=== PATIENT | male | born 1960 | race Caucasian/White ===

== ENCOUNTER 2019-12-26 17:19 | Inpatient (IN) | payer MEDICAID ==
[~2019-12-26] VITALS: Ht 175.3 cm; Wt 98.0 kg
--- NOTE | 2019-12-26 17:32 | NUR ---
PT AAOX4. [facility]o chest pain. Upon assessment pt c/o mid chest pain radiating to left arm. 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 Pt placed on monitor and pulse ox. Labs drawn, IV initiated. VSS. Awaiting MD for Eval.
[2019-12-26 17:49] LABS: BASOPHILS # (AUTO) 0.1 /CMM (0.0-0.2); BASOPHILS % (AUTO) 0.9 % (0.0-2.0); EOSINOPHILS % (AUTO) 0.2 % (0.0-6.0); HEMATOCRIT 43 % (39-51); HEMOGLOBIN 14.4 g/dL (13.5-17.5); LYMPHOCYTES % (AUTO) 20.2 % (20.0-44.0); MEAN CORPUSCULAR HGB CONC 33 g/dl (31.0-36.0); MEAN CORPUSCULAR VOLUME 90 fL (80-96); MONOCYTES # (AUTO) 0.9 /CMM (0.1-1.30); MONOCYTES % (AUTO) 8.5 % (2.0-12.0); NEUTROPHILS % (AUTO) 70.2 % (43.0-81.0); PLATELET COUNT (AUTO) 156 /CMM (150-450)
[2019-12-26] MEDS ORDERED: ASPIRIN 325 MG TABLET PO ONE (18:00)
[2019-12-26] MEDS ORDERED: NITROGLYCERIN PACKET 1 GM PACKET TD ONE (18:00)
[2019-12-26] MEDS ORDERED: ASPIRIN 325 MG TABLET ONE (18:12)
[2019-12-26] MEDS ORDERED: NITROGLYCERIN PACKET 1 GM PACKET ONE (18:12)
[2019-12-26 18:14] LABS: ALANINE AMINOTRANSFERASE 39 U/L (12-78); ALBUMIN 3.4 g/dL (3.4-5.0); ALKALINE PHOSPHATASE 98 U/L (46-116); ASPARTATE AMINOTRANSFERASE 21 U/L (15-37); BILIRUBIN,DIRECT 0.1 mg/dL (0.0-0.2); BILIRUBIN,TOTAL 0.7 mg/dL (0.2-1.0); CALCIUM, SERUM 8.9 mg/dL (8.5-10.1); CARBON DIOXIDE 26 mmol/L (21-32); CHLORIDE 96 mmol/L (98-107); GLUCOSE 226 mg/dL (74-106); POTASSIUM 4.2 mmol/L (3.5-5.1); SODIUM SERUM 134 mmol/L (136-145); TOTAL PROTEIN, SERUM 6.9 g/dL (6.4-8.2); UREA NITROGEN, BLOOD 26 mg/dL (7-18)
[2019-12-26] MEDS ORDERED: METF-440 PO (18:30)
[2019-12-26] MEDS ORDERED: ASPI-1169 PO (18:30)
[2019-12-26] MEDS ORDERED: ATOR40TA PO (18:30)
[2019-12-26] MEDS ORDERED: TIOT18CA3 IH (18:30)
[2019-12-26] MEDS ORDERED: FURO-144 PO (18:30)
[2019-12-26] MEDS ORDERED: PRED50TA PO (18:30)
[2019-12-26] MEDS ORDERED: LISI2.5T2 PO (18:30)
[2019-12-26] MEDS ORDERED: CARV6.25 PO (18:30)
--- NOTE | 2019-12-26 19:00 | NUR ---
Patient is resting comfortably in bed. Easily aroused. VSS
--- NOTE | 2019-12-26 19:17 | NUR ---
PAGED [facility].
--- NOTE | 2019-12-26 19:28 | NUR ---
Patient is resting comfortably in bed . Easily aroused. VSS.
[2019-12-26] MEDS ORDERED: MORPHINE SULFATE INJ 2 MG/ML DISP.SYRIN IV PRN (20:00)
[2019-12-26] MEDS ORDERED: MAG HYDROX/AL HYDROX/SIMETH 30 ML UDC PO PRN (20:00)
[2019-12-26] MEDS ORDERED: ACETAMINOPHEN 325 MG TABLET PO PRN (20:00)
[2019-12-26] MEDS ORDERED: ONDANSETRON HCL/PF 4 MG/2 ML VIAL IVP PRN (20:00)
[2019-12-26] MEDS ORDERED: MAGNESIUM HYDROXIDE 30 ML UDC PO PRN (20:00)
[2019-12-26] MEDS ORDERED: HYDROCODONE/APAP 5/325MG 1 EACH TABLET PO PRN (20:00)
--- NOTE | 2019-12-26 20:28 | NUR ---
REPORT GIVEN TO IVORY SEALS FOR SAUD
[2019-12-26] MEDS ORDERED: INSULIN REGULAR, HUMAN 100 UNIT/ML 3 ML VIAL SQ PRN (20:30)
[2019-12-26] MEDS ORDERED: DEXTROSE 50%-WATER 50 ML DISP.SYRIN IV PRN (20:30)
[2019-12-26 20:45] VITALS: BP 121/67
--- NOTE | 2019-12-26 20:55 | NUR ---
PT TRASNFERED PER ACLS PROTOCOL
--- NOTE | 2019-12-26 21:00 | NUR ---
GAS FLOW REGULATOR NOTE: RECEIVED PATIENT TO ER, NO ACUTE DISTRESS NOTED. BREATHING EVEN AND UNLABORED, NO SOB NOTED. IV TO LAC IN PLACE. PATIENT STILL COMPLAINS OF CHEST PAIN 3/10, NO LONGER RADIATING TO ARM. TELE READING SINUS TACH 108. ORIENTED PATIENT TO ROOM AND USE OF CALL LIGHT. BED LOCKED AND IN LOWEST POSITION, CALL LIGHT IN REACH. WILL CONTINUE TO MONITOR.
[2019-12-26] MEDS: BLOOD SUGAR DIAGNOSTIC 1 EACH STRIP IN SCH (21:15)
[2019-12-26] MEDS: IPRATROPIUM NEB FS 0.5 MG/2.5 ML AMPUL.NEB NEB SCH (21:42)
--- NOTE | 2019-12-26 22:00 | NUR ---
BLIND TEACHER NOTE: PATIENT BLOOD SUGAR LEVEL 186M/DL, PATIENT TO RECEIVE 3 UNITS OF INSULIN PER SLIDING SCALE. NO S/S OF HYPER/HYPOGLYCEMIA NOTED. WILL CONTINUE TO MONITOR.
[2019-12-27] VITALS: BP 124/58
[2019-12-27] MEDS: IPRATROPIUM NEB FS 0.5 MG/2.5 ML AMPUL.NEB NEB SCH ×3 (00:41→13:30)
[2019-12-27 04:00] VITALS: BP 121/74
[2019-12-27 06:21] LABS: BASOPHILS % (AUTO) 0.4 % (0.0-2.0); EOSINOPHILS % (AUTO) 0.6 % (0.0-6.0); HEMATOCRIT 39 % (39-51); HEMOGLOBIN 13.2 g/dL (13.5-17.5); LYMPHOCYTES # (AUTO) 1.7 /CMM (0.8-4.8); LYMPHOCYTES % (AUTO) 25.5 % (20.0-44.0); MEAN CORPUSCULAR HGB CONC 34 g/dl (31.0-36.0); MEAN CORPUSCULAR VOLUME 90 fL (80-96); MONOCYTES # (AUTO) 0.6 /CMM (0.1-1.30); MONOCYTES % (AUTO) 9.6 % (2.0-12.0); NEUTROPHILS # (AUTO) 4.1 /CMM (1.8-8.9); NEUTROPHILS % (AUTO) 63.9 % (43.0-81.0); PLATELET COUNT (AUTO) 129 /CMM (150-450); RED BLOOD CELL COUNT(AUTO) 4.39 MIL/uL (4.5-6.0); WHITE BLOOD COUNT (AUTO) 6.5 K/uL (4.3-11.0)
--- NOTE | 2019-12-27 06:55 | NUR ---
OUTLET MANAGER NOTE: PATIENT RESTING IN BED, NO ACUTE DISTRESS NOTED. BREATHING EVEN AND UNLABORED, NO SOB NOTED. IV TO LAC IN PLACE. TELE READING SR 84 WITH PVC. PATIENT BLOOD SUGAR LEVEL 256MG/DL, TO RECEIVE6 UNITS OF INSULIN PER SLIDING SCALE. BED LOCKED AND IN LOWEST POSITION, CALL LIGHT IN REACH. WILL ENDORSE TO DAY NURSE TO CONTINUE WITH PLAN OF CARE.
[2019-12-27] MEDS: BLOOD SUGAR DIAGNOSTIC 1 EACH STRIP IN SCH ×2 (07:04→11:34)
[2019-12-27 07:27] LABS: CALCIUM, SERUM 8.2 mg/dL (8.5-10.1); CREATININE 0.9 mg/dL (0.6-1.3); POTASSIUM 4.1 mmol/L (3.5-5.1)
--- NOTE | 2019-12-27 07:30 | NUR ---
Tele/RN - Assessment Patient in bed awake, A/O x 4, denies chest pain, stable on room air, tele shows SR with PVCs. Saline lock on the LAC is patent, intact, with no signs of infiltration. Labs reviewed no critical results seen. Urine specimen sent for drug screen. Discussed plan of care with patient and in agreement. Will continue with current medical management.
[2019-12-27 07:34] LABS: ALBUMIN 2.9 g/dL (3.4-5.0); BILIRUBIN,TOTAL 0.8 mg/dL (0.2-1.0); PHOSPHORUS 3.4 mg/dL (2.5-4.9); TOTAL PROTEIN, SERUM 6.4 g/dL (6.4-8.2)
[2019-12-27 07:54] LABS: THYROID STIMULATING HORMONE 1.992 uIU/mL (0.358-3.74)
[2019-12-27 08:00] VITALS: BP 108/59
--- NOTE | 2019-12-27 08:30 | NUR ---
Tele/RN - Cardio consult Seen and examined by Dr. Schmitt with order to d/c tele, obtain consent for CTCA. Patient signed consent for CTCA.
[2019-12-27] MEDS ORDERED: NICOTINE PATCH (14MG) 14 MG PATCH.TD24 TD SCH (09:00)
[2019-12-27] MEDS ORDERED: FUROSEMIDE 40 MG TABLET PO SCH (09:00)
[2019-12-27] MEDS ORDERED: ASPIRIN 81 MG TAB.CHEW PO SCH (09:00)
[2019-12-27] MEDS ORDERED: CARVEDILOL 6.25 MG TABLET PO SCH ×2 (09:00)
[2019-12-27] MEDS ORDERED: LISINOPRIL (5MG) 5 MG TABLET PO SCH (09:00)
--- NOTE | 2019-12-27 09:00 | NUR ---
MS/RN - Notes Patient signed consent for smoking, explained the risk and consequences, smoking cessation handout provided.
[2019-12-27 11:07] LABS: APPEARANCE,URINE CLEAR (CLEAR); BILIRUBIN,URINE NEGATIVE (NEGATIVE); BLOOD, URINE SMALL Ery/uL (NEGATIVE); COLOR,URINE YELLOW (YELLOW); KETONES,URINE NEGATIVE (NEGATIVE); LEUKOCYTE ESTERASE ,URINE NEGATIVE (NEGATIVE); NITRITE, URINE NEGATIVE (NEGATIVE); PH,URINE 6.5 (5.0-8.0); PROTEIN,URINE NEGATIVE (NEGATIVE); UGLUCOSE >=1000 mg/dL (NEGATIVE)
[2019-12-27] MEDS ORDERED: IOHEXOL-350 100 ML VIAL IV ONE (11:09)
[2019-12-27] MEDS ORDERED: IV NS 0.9% 250 ML IV ONE (11:09)
[2019-12-27] MEDS ORDERED: NITROGLYCERIN 0.4 MG/TAB BOTTLE ONE (11:14)
[2019-12-27] MEDS ORDERED: METOPROLOL TARTRATE INJ 5 MG/5 ML AMPUL ONE ×2 (11:15→11:48)
[2019-12-27 11:17] LABS: BACTERIA,URINE Rare /HPF (None Seen); MUCUS,URINE Rare /LPF (None Seen); SQUAMOUS EPITHELIAL CELL,UR Rare /HPF (None Seen); WBC,URINE 0-2 /HPF (0-3)
--- NOTE | 2019-12-27 11:29 | NUR ---
Social service consult requested by for homelessness. Per MD notes, pt is a 59-year-old male with past medical history of essential hypertension, hyperlipidemia, diabetes mellitus, COPD, presented to the emergency department via rescue ambulance from [place] for evaluation of epigastric and nonradiating chest pain that started approximately 4 hours prior to arrival. WIRE DROPPER met with the pt bedside. Pt is alert and oriented x 4. Pt appears disheveled and unkempt. Pt reports to be homeless and states, he has been staying at [facility] for the past 2 weeks and plans to go back there. Pt requested for WIRE DROPPER to contact his bonding machine tender Deepak and inform him that he is hospitalized. WIRE DROPPER contacted Deepak and left him a voicemail message regarding pt's whereabouts. Pt denies drug and alcohol use. Pt is a cigarette smoker and goes out to smoke several times during this hospitalization. Pt states he suffers from Depression but is not taking any medications for it. Pt denies suicidal and homicidal ideations and visual/auditory hallucinations at this time. Pt stated, he needs a walker. WIRE DROPPER informed BESSY Catalan who will get a walker for the pt. WIRE DROPPER provided pt with active listening and supportive counseling. Pt will require a TAP card upon discharge. WIRE DROPPER updated pt's BOZENA Jay with pt's discharge plan.
[2019-12-27] MEDS: METOPROLOL TARTRATE INJ 5 MG/5 ML AMPUL IVP PRN ×6 (11:30→11:55)
[2019-12-27] MEDS ORDERED: NITROGLYCERIN 0.4 MG/TAB BOTTLE SL ONE (11:30)
[2019-12-27 11:55] VITALS: BP 103/56
--- NOTE | 2019-12-27 12:28 | NUR ---
Patient came in with Nitro patch. Nitroglycerin SL discontinued.
--- NOTE | 2019-12-27 14:44 | NUR ---
MS/RN - Discharge Patient is alert and oriented x 4, discharged to long-term in stable condition, remain afebrile, denies chest pain, not in any form of distress, ambulatory with steady gait, denies SI/HI at this time. Reviewed discharge instructions with patient and he verbalized full understanding of all teachings including medications and follow up with PCP in one week. Seek immediate medical attention for worsening symptoms, chest pain, shortness of breath, palpitations, abdominal pain or distention, intractable nausea and vomiting, diarrhea, hematochezia, melena, weakness, loss of consciousness, neurological deficit, or any other emergent concerns. All belongings with patient and he deny any missing items. Patient refused photos to be taken of skin, no breakdown. Saline lock removed on the RAC with catheter tip intact, no redness, no swelling noted at the site. Patient signed discharge paperwork and homeless waiver form and copies were given per protocol. Accompanied to the lobby and TAP card was provided to the patient.
[2019-12-27] MEDS ORDERED: ATORVASTATIN 40 MG TABLET PO SCH (18:00)
== END 2019-12-27 15:30 | disposition home or self-care (01) | DRG 198 ==
LOC: ER 17:20 → TELE 20:15 → MED 12-27 09:02
PROVIDERS: ADMIT Nurse Practitioner Acute Care; ATTEND Internal Medicine
DX: I25.10 Atherosclerotic heart disease of native coronary artery without angina pectoris (principal); N17.0 Acute kidney failure with tubular necrosis; E11.65 Type 2 diabetes mellitus with hyperglycemia; E87.1 Hypo-osmolality and hyponatremia; E86.0 Dehydration; Z88.4 Allergy status to anesthetic agent; Z79.82 Long term (current) use of aspirin; Z79.84 Long term (current) use of oral hypoglycemic drugs; Z79.899 Other long term (current) drug therapy; J44.9 Chronic obstructive pulmonary disease, unspecified; Z59.0 Homelessness; I10 Essential (primary) hypertension; E78.5 Hyperlipidemia, unspecified; E66.9 Obesity, unspecified; Z68.31 Body mass index [BMI] 31.0-31.9, adult
CPT/HCPCS: 36415; 71045-TC; 75574; 80048-TC; 80053-TC; 80061-TC; 80076-TC; 80305; 81000-TC; 82962-TC; 83735-TC; 84100-TC; 84443-TC; 84484-TC; 85025-TC; 87081-TC; G0378; J1815; J3490; J7050; Q9967

== ENCOUNTER 2022-04-21 18:48 | Inpatient (IN) | payer MEDICAID ==
[~2022-04-21 18:48] MED LIST: ASPI-1169 PO; ATOR40TA PO; CARV6.25 PO; FURO-144 PO; LISI2.5T2 PO; METF-440 PO; PRED50TA PO; TIOT18CA3 IH
--- NOTE | 2022-04-21 22:16 | NUR ---
PATIENT ARRIVED PER AMBULANCE DIRECT ADMIT FROM [place], PATIENT IS AWAKE, A/O X4, CALM. PER AMBULANCE PERSONNEL PATIENT WAS AGITATED AND RESTLESS AND UNCOOPERATIVE, AND COMBATIVE WHILE INSIDE THE AMBULANCE ON THE WAY HERE. WHEN PATIENT ARRIVED HE STATES THAT HE WANTS TO LEAVE THE HOSPITAL, CHARGE NURSE THOMAS TALKED TO THE PATIENT.
[2022-04-21 22:20] VITALS: BP 119/74
--- NOTE | 2022-04-21 22:30 | NUR ---
PATIENT HAS FOOD ON HIS TABLE, PER EDINSON ERICKSON, CHARGE NURSE GAVE THE FOOD TO THE PATIENT. ADVISED PATIENT DO NOT EAT YET UNTIL MD MADE ADMISSION ORDERS, BUT PATIENT WAS MAD AND REFUSED AND STATES" NO! I AM GOING TO EAT RIGHT NOW!".
--- NOTE | 2022-04-21 23:00 | NUR ---
PATIENT IS VERY ANGRY WITH VERY LOUD TONE OF VOICE AND STATES THAT HE WANTS TO LEAVE, CHARGE NURSE THOMAS MADE AWARE, AND TALKED TO THE PATIENT.
--- NOTE | 2022-04-21 23:21 | NUR ---
INFORMED DR YEPEZ RE: ADMISSION ORDERS.
[2022-04-22] MEDS ORDERED: HYDROCODONE/APAP 5/325MG TABLET PO PRN
[2022-04-22] MEDS ORDERED: MAGNESIUM HYDROXIDE 30 ML UDC PO PRN
[2022-04-22] MEDS ORDERED: MORPHINE SULFATE INJ 2 MG/ML DISP.SYRIN IV PRN
[2022-04-22] MEDS ORDERED: Z GUARD REMEDY 4 OZ OINT TP PRN
[2022-04-22] MEDS ORDERED: ONDANSETRON HCL/PF 4 MG/2 ML VIAL IVP PRN
[2022-04-22] MEDS ORDERED: ZOLPIDEM TARTRATE 5 MG TABLET PO PRN
[2022-04-22] MEDS ORDERED: ACETAMINOPHEN 325 MG TABLET PO PRN
[2022-04-22] MEDS ORDERED: MAG HYDROX/AL HYDROX/SIMETH 30 ML UDC PO PRN
--- NOTE | 2022-04-22 00:19 | NUR ---
DR YEPEZ CAME AND SEEN THE PATIENT.
[2022-04-22] MEDS ORDERED: *INSULIN REGULAR(HUMULIN R)HUM 100 UNIT/ML VIAL SQ PRN (00:30)
[2022-04-22] MEDS ORDERED: INSULIN REGULAR, HUMAN 100 UNIT/ML 3 ML VIAL SQ PRN (00:30)
[2022-04-22] MEDS ORDERED: ENOXAPARIN SODIUM 40 MG/0.4 ML DISP.SYRIN SQ SCH (00:30)
[2022-04-22] MEDS ORDERED: DEXTROSE 50%-WATER 50 ML DISP.SYRIN IV PRN (00:30)
--- NOTE | 2022-04-22 01:20 | NUR ---
PATIENT YELLED, SAYING F WORDS, VERY AGGRESSIVE, BIZZAR BEHAVIOR. VERY RUDE. THREW AWAY ALL THE THINGS FROM THE TABLE TO THE FLOOR. PATIENT REFUSED TO WEAR THE HOSPITAL SOCKS. PATIENT SCREAMS VERY LOUD AND AFTER FEW MINUTES HE CRIES. INFORMED CHARGE NURSE THOMAS. PATIENT REFUSED THE SKIN ASSESSMENTS. UNABLE TO DO THE ADMISSION QUESTIONS DUE TO PATIENT IS VERY IRRITABLE AND PATIENT REFUSED.
[2022-04-22] MEDS: IPRATROPIUM NEB FS 0.5 MG/2.5 ML AMPUL.NEB NEB SCH ×2 (01:30→07:35)
--- NOTE | 2022-04-22 01:45 | NUR ---
Pt refusing schedule EKG and HHN breathing TX at this time. RN aware. No distress noted at this time.
--- NOTE | 2022-04-22 02:00 | NUR ---
PATIENT IS SLEEPING AT THIS TIME.
[2022-04-22 05:55] LABS: BASOPHILS % (AUTO) 0.4 % (0.0-2.0); EOSINOPHILS % (AUTO) 1.3 % (0.0-6.0); HEMATOCRIT 46 % (39-51); HEMOGLOBIN 15.9 g/dL (13.5-17.5); LYMPHOCYTES # (AUTO) 1.9 K/uL (0.8-4.8); LYMPHOCYTES % (AUTO) 29.4 % (20.0-44.0); MEAN CORPUSCULAR HGB CONC 35 g/dl (31.0-36.0); MEAN CORPUSCULAR VOLUME 92 fL (80-96); MONOCYTES # (AUTO) 0.8 K/uL (0.1-1.30); MONOCYTES % (AUTO) 12.9 % (2.0-12.0); NEUTROPHILS # (AUTO) 3.7 K/uL (1.8-8.9); PLATELET COUNT (AUTO) 166 K/uL (150-450); RED BLOOD CELL COUNT(AUTO) 4.99 MIL/uL (4.5-6.0); WHITE BLOOD COUNT (AUTO) 6.6 K/uL (4.3-11.0)
--- NOTE | 2022-04-22 06:00 | NUR ---
PATIENT AWAKE. STATES AGAIN THAT HE WANTS TO LEAVE, INFORMED THE CHARGE NURSE THOMAS 3X.
[2022-04-22 06:37] LABS: CALCIUM, SERUM 8.5 mg/dL (8.5-10.1); CREATININE 0.9 mg/dL (0.6-1.3); PHOSPHORUS 3.1 mg/dL (2.5-4.9); POTASSIUM 3.7 mmol/L (3.5-5.1)
[2022-04-22 07:06] LABS: THYROID STIMULATING HORMONE 1.236 uIU/mL (0.358-3.74)
[2022-04-22] MEDS ORDERED: BLOOD SUGAR DIAGNOSTIC 1 EACH STRIP VI SCH (07:30)
--- NOTE | 2022-04-22 07:51 | NUR ---
ACCORDING TO THE SCRAPPER, AT 0620 PATIENT LEFT. ACCORDING TO THE DISTRICT MANAGER POSTAL SERVICE [place], PATIENT PULLED HIS IV OUT AND LEFT, DISTRICT MANAGER POSTAL SERVICE STATED THAT PATIENT STOPPED AT THE NURSING STATION FOR ABOUT 1-2 MINUTES BEFORE HE LEFT AND CHARGE NURSE SEEN THE PATIENT.
--- NOTE | 2022-04-22 08:39 | NUR ---
RT NOTE Pt. was not available could not find in room.
[2022-04-22] MEDS ORDERED: CARVEDILOL 6.25 MG TABLET PO SCH (09:00)
[2022-04-22] MEDS ORDERED: TIOTROPIUM BROMIDE 6 CAP/BOX CAP.W.DEV IH SCH (09:00)
[2022-04-22] MEDS ORDERED: ASPIRIN 81 MG TAB.CHEW PO SCH (09:00)
[2022-04-22] MEDS ORDERED: FUROSEMIDE 40 MG TABLET PO SCH (09:00)
[2022-04-22] MEDS ORDERED: predniSONE 20 MG TABLET PO SCH (09:00)
[2022-04-22] MEDS ORDERED: PANTOPRAZOLE 40 MG VIAL IV SCH (09:00)
[2022-04-22] MEDS ORDERED: NICOTINE PATCH (21MG) 21 MG PATCH.TD24 TD SCH (09:00)
[2022-04-22] MEDS ORDERED: LISINOPRIL (5MG) 5 MG TABLET PO SCH (09:00)
[2022-04-22] MEDS ORDERED: ATORVASTATIN 40 MG TABLET PO SCH (18:00)
== END 2022-04-22 06:20 | disposition left against medical advice (07) | DRG 190 ==
LOC: TELE 22:12
PROVIDERS: ADMIT Student in an Organized Health Care Education/Training Program; ATTEND Student in an Organized Health Care Education/Training Program
DX: I21.4 Non-ST elevation (NSTEMI) myocardial infarction (principal); I74.5 Embolism and thrombosis of iliac artery; E87.1 Hypo-osmolality and hyponatremia; K90.9 Intestinal malabsorption, unspecified; E11.9 Type 2 diabetes mellitus without complications; E86.0 Dehydration; I71.4 Abdominal aortic aneurysm, without rupture; I25.10 Atherosclerotic heart disease of native coronary artery without angina pectoris; E78.5 Hyperlipidemia, unspecified; I10 Essential (primary) hypertension; I25.2 Old myocardial infarction; F17.210 Nicotine dependence, cigarettes, uncomplicated; F12.90 Cannabis use, unspecified, uncomplicated; Z59.00 Homelessness unspecified; Z20.822 Contact with and (suspected) exposure to COVID-19; Z79.51 Long term (current) use of inhaled steroids; Z79.82 Long term (current) use of aspirin; Z79.84 Long term (current) use of oral hypoglycemic drugs; Z79.899 Other long term (current) drug therapy; Z88.4 Allergy status to anesthetic agent; R11.15 Cyclical vomiting syndrome unrelated to migraine; E87.6 Hypokalemia; R74.01 Elevation of levels of liver transaminase levels; R79.89 Other specified abnormal findings of blood chemistry
CPT/HCPCS: 36415; 80048-TC; 83735-TC; 84100-TC; 84443-TC; 84484-TC; 85025-TC; G0378; J1815; J2405

== ENCOUNTER 2022-09-22 13:11 | Emergency (ER) | payer MEDICAID ==
[~2022-09-22] VITALS: Ht 175.3 cm; Wt 95.3 kg
--- NOTE | 2022-09-22 13:18 | NUR ---
[address] C/O NAUSEA AND VOMITING X 2 HOURS. PLACED ON BED, AAOX4, BREATHING EVEN AND UNLABORED.
--- NOTE | 2022-09-22 14:45 | NUR ---
GROUP BILLING COORDINATOR AT BEDSIDE
--- NOTE | 2022-09-22 14:51 | NUR ---
URINE SAMPLE SENT TO LAB
[2022-09-22 15:13] LABS: BASOPHILS % (AUTO) 0.4 % (0.0-2.0); EOSINOPHILS % (AUTO) 0.1 % (0.0-6.0); HEMATOCRIT 45 % (39-51); HEMOGLOBIN 15.1 g/dL (13.5-17.5); LYMPHOCYTES # (AUTO) 0.9 K/uL (0.8-4.8); MEAN CORPUSCULAR HGB CONC 34 g/dl (31.0-36.0); MEAN CORPUSCULAR VOLUME 94 fL (80-96); MONOCYTES # (AUTO) 0.4 K/uL (0.1-1.30); MONOCYTES % (AUTO) 4.3 % (2.0-12.0); NEUTROPHILS # (AUTO) 7.7 K/uL (1.8-8.9); NEUTROPHILS % (AUTO) 85.2 % (43.0-81.0); PLATELET COUNT (AUTO) 196 K/uL (150-450); RED BLOOD CELL COUNT(AUTO) 4.73 MIL/uL (4.5-6.0); WHITE BLOOD COUNT (AUTO) 9.1 K/uL (4.3-11.0)
[2022-09-22] MEDS ORDERED: IV NS 0.9% 1,000 ML BAG IV ONE (15:30)
[2022-09-22] MEDS ORDERED: ONDANSETRON HCL/PF 4 MG/2 ML VIAL ONE (15:30)
[2022-09-22] MEDS ORDERED: ONDANSETRON HCL/PF 4 MG/2 ML VIAL IVP ONE (15:30)
[2022-09-22 15:32] LABS: ALBUMIN 3.9 g/dL (3.4-5.0); BILIRUBIN,DIRECT 0.1 mg/dL (0.0-0.2); BILIRUBIN,TOTAL 0.4 mg/dL (0.2-1.0); CALCIUM, SERUM 9.2 mg/dL (8.5-10.1); CREATININE 0.9 mg/dL (0.6-1.3); POTASSIUM 4.1 mmol/L (3.5-5.1); TOTAL PROTEIN, SERUM 7.9 g/dL (6.4-8.2)
[2022-09-22 15:38] LABS: BILIRUBIN,URINE NEGATIVE (NEGATIVE); COLOR,URINE YELLOW (YELLOW); LEUKOCYTE ESTERASE ,URINE NEGATIVE (NEGATIVE); NITRITE, URINE NEGATIVE (NEGATIVE); PH,URINE 7.5 (5.0-8.0); PROTEIN,URINE TRACE mg/dl (NEGATIVE); UGLUCOSE 3+ mg/dL (NEGATIVE); UROBILINOGEN,URINE 0.2 EU/dL (0.2)
[2022-09-22 15:50] LABS: BACTERIA,URINE None seen /HPF (None Seen); RBC,URINE 21-50 /HPF (0-2); SQUAMOUS EPITHELIAL CELL,UR 0-2 /HPF (None Seen); WBC,URINE 0-2 /HPF (0-3)
[2022-09-22] MEDS ORDERED: ONDA4TAB5 PO (17:19)
--- NOTE | 2022-09-22 17:55 | NUR ---
IV removed. Catheter intact and site benign. Pressure and 4x4 applied to site. No bleeding noted.Patient discharged to home in stable condition. Written and verbal after care instructions given. Patient verbalizes understanding of instruction.
[2022-09-22 18:00] VITALS: BP 145/75
== END 2022-09-22 17:55 | disposition home or self-care (01) ==
LOC: ER 13:14
DX: R11.2 Nausea with vomiting, unspecified (principal); E11.9 Type 2 diabetes mellitus without complications; I10 Essential (primary) hypertension; Z88.8 Allergy status to other drugs, medicaments and biological substances; Z79.899 Other long term (current) drug therapy
CPT/HCPCS: 99284; 74176; 96374; 96361; 85025; 80048; 83690; 80076; 81001; 36415; J2405; J7030

== ENCOUNTER 2024-08-22 21:16 | Emergency (ER) | payer MEDICARE, OTHER ==
[~2024-08-22] VITALS: Ht 170.2 cm; Wt 72.6 kg
[~2024-08-22 21:16] MED LIST changes: +ONDA4TAB5 PO
[2024-08-22 21:29] VITALS: BP 134/78; TEMP 98.8; O2SAT 100
[2024-08-22] MEDS ORDERED: IV NS 0.9% 1,000 ML BAG IV ONE (22:00)
[2024-08-22] MEDS ORDERED: CT SWABBABLE VALVE TRANS SET 1 EA INFUS.SET MC ONE (22:02)
[2024-08-22] MEDS ORDERED: IOHEXOL-300 100 ML VIAL IV ONE (22:02)
[2024-08-22] MEDS ORDERED: IV NS 0.9% 500 ML IV ONE (22:02)
== END 2024-08-22 21:54 | disposition left against medical advice (07) ==
LOC: ER 21:19
DX: R10.9 Unspecified abdominal pain (principal); Z59.00 Homelessness unspecified; Z53.21 Procedure and treatment not carried out due to patient leaving prior to being seen by health care provider
CPT/HCPCS: J7040; Q9967